=== PATIENT | female | born 1945 | race American Indian/Alaskan Native ===

== ENCOUNTER 2016-09-17 09:35 | Outpatient (CLI) | payer MEDICARE ==
--- NOTE | 2016-09-17 10:33 | Cat Scan Report ---
CT ABDOMEN AND PELVIS WITHOUT CONTRAST INDICATION: Hematuria. COMPARISON: None similar at this institution. FINDINGS: Noncontrast abdomen and pelvis CT performed. LUNG BASES: Mild bibasilar scarring. Top normal heart size. Slight air-filled distal esophageal prominence. No effusions. ABDOMEN: Please note that sensitivity to detect small visceral lesions is limited due to the absence of intravenous or oral contrast. Grossly unremarkable unenhanced liver, spleen, gallbladder, pancreas, adrenals, nonaneurysmal tortuous abdominal aorta, IVC and non-hydronephrotic kidneys. Slight nonspecific bilateral perinephric stranding. No radiopaque calculi. Nonopacified GI tract evaluation limited, though grossly nonobstructive. Normal appendix. Mild colonic stool. Colonic diverticulosis, most along the descending colon. PELVIS: Multiple calcified fibroids, the largest approximately 5.5 cm. Few other pelvic vascular calcifications. No free fluid or significant adenopathy. Grossly unremarkable unenhanced urinary bladder and the rectosigmoid. Demineralized bones with multilevel spinal degenerative changes, including spurring. Mid to lower lumbar facet arthropathy. Bilateral SI and hip joints degenerative changes as well. CONCLUSION: No radiopaque calculi or hydronephrosis with various other incidental findings, including calcified fibroids and colonic diverticulosis, amongst others, as above. Please correlate. Thank you for the opportunity to participate in this patient's care.
== END 2016-09-17 09:36 | disposition home or self-care (01) ==
LOC: CT 09:35
PROVIDERS: ATTEND Urology
DX: N30.01 Acute cystitis with hematuria (principal); D25.9 Leiomyoma of uterus, unspecified; J98.4 Other disorders of lung; K57.30 Diverticulosis of large intestine without perforation or abscess without bleeding; M12.88 Other specific arthropathies, not elsewhere classified, other specified site; M47.899 Other spondylosis, site unspecified
CPT/HCPCS: 74176

== ENCOUNTER 2016-11-13 07:37 | Outpatient (CLI) | payer MEDICARE ==
--- NOTE | 2016-11-13 10:21 | Mammography Report ---
Bilateral mammogram with tomosynthesis: No previous studies available. CAD study utilized. Findings: Predominance adipose tissue bilaterally. Benign calcifications. Circumscribed 5 mm asymmetric density noted at the inner left breast on tomosynthesis. Right rosie appears unremarkable. No microcalcification. Impression: Circumscribed density in the left breast. Recommend sonographic examination. BI-RADS CATEGORY: 0 = Needs additional imaging evaluation ACR BI-RADS MAMMOGRAPHIC CODES: 0 = Needs additional imaging evaluation; 1 = Negative; 2 = Benign; 3 = Probably benign; 4 = Suspicious; 5 = Malignant; 6 = Known biopsy-proven malignancy COMMENT: 1. Dense breast tissue, i.e., adenosis, fibrocystic changes, etc., may obscure an underlying neoplasm. 2. Approximately 10% of cancers are not detected with mammography. 3. A negative mammography report should not delay biopsy if a clinically suspicious mass is present.
== END 2016-11-13 07:38 | disposition home or self-care (01) ==
LOC: MAMMO 07:37
PROVIDERS: ATTEND Internal Medicine
DX: Z12.31 Encounter for screening mammogram for malignant neoplasm of breast (principal)
CPT/HCPCS: 77063; G0202; 77067

== ENCOUNTER 2016-11-30 07:43 | Outpatient (CLI) | payer MEDICARE ==
--- NOTE | 2016-11-30 08:42 | Ultrasound Report ---
Left breast ultrasound: Imaging of the left breast is performed based on a tomomammogram identifying a small nodule in the medial left breast on CC images. Ultrasound in the 11:00 position demonstrates a circumscribed hypoechoic nodule which is slightly elongated measuring 1.8 x 3 mm. There is a scattered echoes within it. There is slight enhancement of posterior wall. No other findings are identified in the medial breast. Impression: Indeterminate nodule. Recommendation: Ultrasound guided aspiration/biopsy. Findings and recommendations verbally relayed to patient by our technologist. BI-RADS CATEGORY: 0 = Needs additional imaging evaluation ACR BI-RADS MAMMOGRAPHIC CODES: 0 = Needs additional imaging evaluation; 1 = Negative; 2 = Benign; 3 = Probably benign; 4 = Suspicious; 5 = Malignant; 6 = Known biopsy-proven malignancy COMMENT: 1. Dense breast tissue, i.e., adenosis, fibrocystic changes, etc., may obscure an underlying neoplasm. 2. Approximately 10% of cancers are not detected with mammography. 3. A negative mammography report should not delay biopsy if a clinically suspicious mass is present.
== END 2016-11-30 07:44 | disposition home or self-care (01) ==
LOC: MAMMO 07:43
PROVIDERS: ATTEND Internal Medicine
DX: N63.0 Unspecified lump in unspecified breast (principal)

== ENCOUNTER 2016-12-10 12:50 | Outpatient (CLI) | payer MEDICARE ==
--- NOTE | 2016-12-10 14:22 | Ultrasound Report ---
ULTRASOUND ASPIRATION LEFT BREAST: 12/10/16 CLINICAL: Left breast nodule at 11 o'clock. COMPARISON: 11/30/16 FINDINGS: The procedure was explained to the patient and informed consent was obtained. Ultrasound demonstrated an oval anechoic 3 mm cyst at 11 o'clock 5 cm from the nipple which correlates with what was described as a hypoechoic nodule on the previous exam. The skin was cleansed with Betadine and anesthetized with 1% lidocaine. A 20-gauge needle was introduced into the cyst with ultrasound guidance. A tiny amount of fluid was aspirated and the cyst showed near-complete collapse. The patient tolerated the procedure well and there were no apparent complications. IMPRESSION: Uncomplicated benign cyst aspiration left breast. No suspicious finding. Recommend routine mammographic screening. BIRADS 2 - - Benign
== END 2016-12-10 12:51 | disposition home or self-care (01) ==
LOC: SPVWC 12:50
PROVIDERS: ATTEND Internal Medicine
DX: N60.02 Solitary cyst of left breast (principal); N63.20 Unspecified lump in the left breast, unspecified quadrant

== ENCOUNTER 2019-03-15 08:55 | Outpatient (CLI) | payer MEDICARE ==
--- NOTE | 2019-03-15 10:18 | Mammography Report ---
DIGITAL SCREENING MAMMOGRAM WITH CAD, 03/15/2019 INDICATION: Routine screening mammography. TECHNIQUE: Digital bilateral 2D mammography was obtained in the craniocaudal and mediolateral obliq ue projections. This examination was interpreted with the benefit of Computer-Aided Detection analysi s. COMPARISON: 02/04/2018 FINDINGS: Breast Density: The breasts are heterogeneously dense, which may obscure small masses. There is no evidence of dominant mass, suspicious calcifications or architectural distortion in eithe r breast. Bilateral benign calcifications which are mostly vascular. IMPRESSION: No mammographic evidence of malignancy. Follow up recommendation: Routine yearly BI-RADS Category 2: Benign. A "normal" or negative report should not discourage follow up or biopsy of a clinically significant f inding. A written summary of these findings will be mailed to the patient. The patient will be entered into a mammography reporting system which will generate a reminder letter for the patient's next appointmen t at the appropriate interval. The [employer] recommends yearly mammograms starting at age 40 and continuing as l eva as a woman is in good health. Breast MRI is recommended for women with an approximate 20-25% or greater lifetime risk of breast cancer, including women with a strong family history of breast or ova jennie cancer or who have been treated for Hodgkin's disease. Signer Name: Andre Melendez MD Signed: 03/15/2019 10:13 AM Workstation Name: [id number]
== END 2019-03-15 08:56 | disposition home or self-care (01) ==
LOC: MAMMO 08:55
PROVIDERS: ATTEND Internal Medicine
DX: Z12.31 Encounter for screening mammogram for malignant neoplasm of breast (principal)
CPT/HCPCS: 77067

== ENCOUNTER 2020-03-18 07:50 | Outpatient (CLI) | payer MEDICARE ==
--- NOTE | 2020-03-18 18:39 | Mammography Report ---
DIGITAL SCREENING MAMMOGRAM WITH CAD, 03/18/2020 CLINICAL INFORMATION / INDICATION: Routine screening mammography. TECHNIQUE: Digital bilateral 2D mammography was obtained in the craniocaudal and mediolateral obliqu e projections. This examination was interpreted without the benefit of Computer-Aided Detection darek sis. COMPARISON: 03/15/2019 and prior FINDINGS: Breast Density: There are scattered areas of fibroglandular density. No dominant mass, suspicious calcifications, or architectural distortion in either breast. IMPRESSION: No mammographic evidence of malignancy. Follow up recommendation: Routine yearly BI-RADS Category 1: Negative. A "normal" or negative report should not discourage follow up or biopsy of a clinically significant f inding. A written summary of these findings will be mailed to the patient. The patient will be entered into a mammography reporting system which will generate a reminder letter for the patient's next appointmen t at the appropriate interval. The [employer] recommends yearly mammograms starting at age 40 and continuing as l eva as a woman is in good health. Breast MRI is recommended for women with an approximate 20-25% or greater lifetime risk of breast cancer, including women with a strong family history of breast or ova jennie cancer or who have been treated for Hodgkin's disease. Signer Name: Edil Cash MD Signed: 03/18/2020 6:34 PM Workstation Name: [id number]
== END 2020-03-18 07:51 | disposition home or self-care (01) ==
LOC: MAMMO 07:50
PROVIDERS: ATTEND Internal Medicine
DX: Z12.31 Encounter for screening mammogram for malignant neoplasm of breast (principal)
CPT/HCPCS: 77067

== ENCOUNTER 2021-03-19 09:14 | Outpatient (CLI) | payer MEDICARE ==
--- NOTE | 2021-03-20 12:54 | Mammography Report ---
DIGITAL SCREENING MAMMOGRAM WITH CAD, 03/19/2021 CLINICAL INFORMATION / INDICATION: Routine screening mammography. TECHNIQUE: Digital bilateral 2D mammography was obtained in the craniocaudal and mediolateral obliqu e projections. This examination was interpreted with the benefit of Computer-Aided Detection analysis . COMPARISON: 03/18/2020, 03/15/2019 FINDINGS: Breast Density: The breasts are heterogeneously dense, which may obscure small masses. No dominant mass, suspicious calcifications, or architectural distortion in either breast. There has been no significant interval change. IMPRESSION: No mammographic evidence of malignancy. Follow up recommendation: Routine yearly BI-RADS Category 1: NEGATIVE A "normal" or negative report should not discourage follow up or biopsy of a clinically significant f inding. A written summary of these findings will be mailed to the patient. The patient will be entered into a mammography reporting system which will generate a reminder letter for the patient's next appointmen t at the appropriate interval. The [employer] recommends yearly mammograms starting at age 40 and continuing as l eva as a woman is in good health. Breast MRI is recommended for women with an approximate 20-25% or greater lifetime risk of breast cancer, including women with a strong family history of breast or ova jennie cancer or who have been treated for Hodgkin's disease. Signer Name: Roman Alejandro MD Signed: 03/20/2021 12:49 PM Workstation Name: [id number]
== END 2021-03-19 09:15 | disposition home or self-care (01) ==
LOC: MAMMO 09:14
PROVIDERS: ATTEND Internal Medicine
DX: Z12.31 Encounter for screening mammogram for malignant neoplasm of breast (principal); N64.89 Other specified disorders of breast
CPT/HCPCS: 77067